=== PATIENT | male | born 1990 | race Caucasian/White ===

== ENCOUNTER 2017-06-24 22:42 | Emergency (ER) | payer SELFPAY ==
[~2017-06-24] VITALS: Ht 180.3 cm; Wt 81.5 kg
[~2017-06-24 22:42] MED LIST: ALBUTEROL SULF8.5 GM IH; AUGMENTIN875 MG PO; FLONASE16 G1 BOTH NARES; LORATADINE10 M2 PO; MOTRIN600 MG PO; MOTRIN800 MG PO; MUCUS RELIEF600 M1 PO; NAPROSYN500 MG PO; NOHOMEMEDS; OXYCODONE HCL5 MG PO; PERCOCET 5/31 TABLET PO; PREDNISONE20 MG PO
[2017-06-25 00:33] VITALS: BP 141/47
== END 2017-06-25 00:33 | disposition home or self-care (01) ==
LOC: EME 22:42
DX: B34.9 Viral infection, unspecified (principal)
CPT/HCPCS: 87502; 87651 90; 99281; 99283

== ENCOUNTER 2017-07-14 20:43 | Emergency (ER) | payer SELFPAY ==
[~2017-07-14] VITALS: Ht 180.3 cm; Wt 78.4 kg
[2017-07-15 00:16] LABS: HEMATOCRIT 39.2 % (38.0-50.0); HEMOGLOBIN 13.8 G/DL (12.5-16.6); MCH 30.9 PG (29.0-34.0); MCHC 35.2 G/DL (30.0-36.0); MCV 87.7 FL (86-99); PLATELET COUNT 264 K/uL (156-360); RBC DIS.WIDTH-CV 11.9 % (11.8-14.6); RBC DIS.WIDTH-SD 38.3 % (39-53); RED BLOOD COUNT 4.47 M/uL (4.00-5.50); WHITE BLOOD COUNT 13.1 K/uL (4.1-10.2)
[2017-07-15 00:27] LABS: ALBUMIN 4.5 g/dL (3.2-4.8); CHLORIDE 107 mEq/L (99-109); POTASSIUM 3.3 mEq/L (3.7-5.4); SODIUM 144 mEq/L (136-147)
[2017-07-15 00:30] LABS: TOTAL PROTEIN 6.9 g/dL (6.4-8.3)
[2017-07-15 00:31] LABS: TOTAL BILIRUBIN 0.6 mg/dL (0.0-1.0)
[2017-07-15 00:33] LABS: ALKALINE PHOSPHATASE 51 IU/L (3-129); GFR ESTIMATE (CALCULATED) > 59 mL/min/ (58.99-99999)
[2017-07-15 00:34] LABS: UREA NITROGEN (BUN) 10 mg/dL (9-23)
[2017-07-15 00:35] LABS: AST (GOT) 23 IU/L (2-34)
[2017-07-15 00:36] LABS: ALT (GPT) 14 IU/L (3-49); LIPASE 2 U/L (1.0-51.0)
[2017-07-15 01:08] LABS: GLUCOSE 89 mg/dL (70-99)
[2017-07-15 01:18] LABS: APPEARANCE SL.HAZY ((CLEAR)); BILIRUBIN NEGATIVE; BLOOD NEGATIVE; COLOR AMBER ((YELLOW)); GLUCOSE (STRIP) NEGATIVE; KETONES 5; LEUKOCYTES TRACE; NITRITE NEGATIVE; PROTEIN (STRIP) 30; SPECIFIC GRAVITY 1.029 (1.000-1.030); UROBILINOGEN 0.2 MG/DL (0.2-1.0)
[2017-07-15 01:22] LABS: BACTERIA NONE SEEN /HPF; EPITHELIAL CELLS RARE /HPF; MUCUS 4+ /LPF; RED BLOOD CELLS 0-5 /HPF (0-5); UCUL ADDED? YES
[2017-07-15] MEDS ORDERED: FLEXERIL10 MG PO (01:40)
[2017-07-15] MEDS ORDERED: NORCO 5/3251 TABLET PO (01:40)
[2017-07-15 02:28] VITALS: BP 103/72
== END 2017-07-15 02:30 | disposition home or self-care (01) ==
LOC: EME 20:43
PROVIDERS: Emergency Medicine
DX: S00.93XA Contusion of unspecified part of head, initial encounter (principal); S16.1XXA Strain of muscle, fascia and tendon at neck level, initial encounter; S30.811A Abrasion of abdominal wall, initial encounter; E86.0 Dehydration; W01.10XA Fall on same level from slipping, tripping and stumbling with subsequent striking against unspecified object, initial encounter; Y92.89 Other specified places as the place of occurrence of the external cause; J45.909 Unspecified asthma, uncomplicated; F31.9 Bipolar disorder, unspecified; F17.200 Nicotine dependence, unspecified, uncomplicated
CPT/HCPCS: 70450; 72100; 72125; 80053; 81003; 83690; 85027; 87086; 99281; 99284

== ENCOUNTER 2017-10-07 20:11 | Emergency (ER) | payer SELFPAY ==
[~2017-10-07] VITALS: Ht 177.8 cm; Wt 78.3 kg
[~2017-10-07 20:11] MED LIST changes: +FLEXERIL10 MG PO; +NORCO 5/3251 TABLET PO
[2017-10-07] MEDS ORDERED: NORCO 7.5/321 TABLET PO (21:27)
[2017-10-07] MEDS ORDERED: MOTRIN800 MG PO (21:27)
[2017-10-07 21:54] VITALS: BP 132/75
== END 2017-10-07 21:55 | disposition home or self-care (01) ==
LOC: EME 20:11
PROC: 3E0234Z Introduction of Serum, Toxoid and Vaccine into Muscle, Percutaneous Approach (ICD-10-PCS; principal; 2017-10-07)
DX: T26.12XA Burn of cornea and conjunctival sac, left eye, initial encounter (principal); X12.XXXA Contact with other hot fluids, initial encounter; Y93.G3 Activity, cooking and baking; Z23 Encounter for immunization; J45.909 Unspecified asthma, uncomplicated; F31.9 Bipolar disorder, unspecified; F17.200 Nicotine dependence, unspecified, uncomplicated
CPT/HCPCS: 99281; 99284